=== PATIENT | female | born 1945 | race Caucasian/White ===

== ENCOUNTER 2017-12-16 18:00 | Emergency (ER) | payer MEDICARE ==
[~2017-12-16] VITALS: Ht 160 cm; Wt 71.2 kg
[2017-12-16] MEDS ORDERED: TETANUS/DIPHTHERIA TOX ADULT 0.5 ML SYR ONE (18:57)
[2017-12-16] MEDS ORDERED: TETANUS/DIPHTHERIA TOX ADULT 0.5 ML SYR IM ONE (19:00)
== END 2017-12-16 19:06 | disposition home or self-care (01) ==
LOC: ER 18:00
DX: L03.113 Cellulitis of right upper limb (principal); S60.571A Other superficial bite of hand of right hand, initial encounter; W55.01XA Bitten by cat, initial encounter; Z88.2 Allergy status to sulfonamides; Z23 Encounter for immunization; I10 Essential (primary) hypertension
CPT/HCPCS: 90471; 90714; 99283